=== PATIENT | female | born 1975 | race Caucasian/White ===

== ENCOUNTER 2018-10-31 18:58 | Emergency (ER) | payer MEDICAID, SELFPAY ==
[~2018-10-31] VITALS: Ht 165.1 cm; Wt 57.2 kg
[2018-10-31] MEDS ORDERED: NACL 0.9% 1,000 ML IV ONE (19:00)
[2018-10-31 19:05] VITALS: BP_SYST 136
[2018-10-31] MEDS ORDERED: ALBUTEROL SULFATE 0.083% 2.5 MG/3 ML VIAL.NEB IH ONE (19:15)
[2018-10-31] MEDS ORDERED: methylPREDNISolone SOD SUCC/PF 62.5 MG/ML VIAL IVP ONE (19:15)
[2018-10-31] MEDS ORDERED: IPRATROPIUM BROM 0.5 MG/2.5 ML VIAL.NEB (ATROVENT) IH ONE (19:15)
[2018-10-31 19:45] LABS: HEMATOCRIT 39.5 % (36-48); HEMOGLOBIN 13.1 g/dL (12.0-16.0); RED BLOOD CELL COUNT(AUTO) 4.47 MIL/uL (4.2-6.2); WHITE BLOOD COUNT (AUTO) 7.8 K/uL (4.8-10.8)
[2018-10-31 19:46] LABS: MEAN CORPUSCULAR HEMOGLOBIN 29 pg (27-31); MEAN CORPUSCULAR HGB CONC 33 % (32-36); MEAN CORPUSCULAR VOLUME 88 fL (79.0-98.0); PLATELET COUNT (AUTO) 380 K/uL (130-430); RED CELL DISTRIBUTION WIDTH 13.4 % (9.0-15.0)
[2018-10-31 19:47] LABS: BASOPHILS % (AUTO) 0.5 % (0.0-2.0); CALCIUM 8.5 mg/dL (8.4-11.0); CREATININE 0.83 mg/dL (0.55-1.30); EOSINOPHILS # (AUTO) 0.1 K/uL (0.0-0.4); EOSINOPHILS % (AUTO) 1.4 % (0.0-4.0); LYMPHOCYTES # (AUTO) 2.2 K/uL (1.0-5.5); LYMPHOCYTES % (AUTO) 28.2 % (20.5-51.5); MONOCYTES # (AUTO) 0.7 K/uL (0.0-1.0); NEUTROPHILS # (AUTO) 4.8 K/uL (1.8-7.7); NEUTROPHILS % (AUTO) 60.9 % (40.0-70.0); POTASSIUM 3.2 mmol/L (3.5-5.1)
[2018-10-31 19:51] LABS: ALBUMIN 3.7 g/dL (3.4-4.8); TOTAL BILIRUBIN 0.2 mg/dL (0.0-1.0)
[2018-10-31] MEDS ORDERED: POTASSIUM CHLORIDE 20 MEQ TAB.PRT.SR PO ONE (20:00)
[2018-10-31] MEDS ORDERED: ALPRAZolam 0.25 MG TABLET PO ONE (20:45)
[2018-10-31 22:38] VITALS: BP_SYST 123
== END 2018-10-31 22:38 | disposition home or self-care (01) ==
LOC: SED 18:58
DX: E87.6 Hypokalemia (principal); R42 Dizziness and giddiness; F41.9 Anxiety disorder, unspecified
CPT/HCPCS: 36415; 70450; 71045; 80053; 81025; 82550; 83690; 84484; 85025; 93005; 94640; 96361; 96374; 99284; J2930; J7030; J7613

== ENCOUNTER 2018-11-03 15:44 | Emergency (ER) | payer MEDICAID ==
[~2018-11-03] VITALS: Ht 165.1 cm; Wt 57.2 kg
[2018-11-03 16:04] VITALS: BP_SYST 136
[2018-11-03 18:46] VITALS: BP_SYST 140
== END 2018-11-03 18:46 | disposition home or self-care (01) ==
LOC: SED 15:44
DX: F41.9 Anxiety disorder, unspecified (principal); K21.9 Gastro-esophageal reflux disease without esophagitis; B02.9 Zoster without complications; R03.0 Elevated blood-pressure reading, without diagnosis of hypertension; Z90.49 Acquired absence of other specified parts of digestive tract
CPT/HCPCS: 81025; 93005; 99283